=== PATIENT | female | born 1990 | race Caucasian/White ===

== ENCOUNTER 2023-06-20 18:41 | Emergency (ER) | payer MEDICAID, SELFPAY ==
[2023-06-20 18:56] VITALS: BP 138/108; PULSE 109; RESP 18; TEMP 36.3; O2SAT 98; BMI 21.4
--- NOTE | 2023-06-20 19:03 | ED.NURSE ---
Patient stated she would go to [facility] after being triaged. Patient refused to sign AMA form.
== END 2023-06-20 19:13 | disposition left against medical advice (07) ==
PROVIDERS: Emergency Provider Emergency Medicine
DX: Z53.21 Procedure and treatment not carried out due to patient leaving prior to being seen by health care provider (principal)